=== PATIENT | male | born 1965 | race Caucasian/White ===

== ENCOUNTER 2016-09-09 20:39 | Emergency (ER) | payer BC ==
[~2016-09-09] VITALS: Ht 177.8 cm; Wt 75.0 kg
[2016-09-09 20:45] VITALS: PULSE 68; TEMP 98.1
[2016-09-09 22:08] VITALS: BP 136/78
== END 2016-09-09 22:09 | disposition home or self-care (01) ==
LOC: COL.ER 20:39
DX: S83.91XA Sprain of unspecified site of right knee, initial encounter (principal); X50.1XXA Overexertion from prolonged static or awkward postures, initial encounter
CPT/HCPCS: L1830